=== PATIENT | male | born 1960 | race Caucasian/White ===

== ENCOUNTER 2020-11-16 16:58 | Inpatient (IN) ==
[2020-11-16] MEDS ORDERED: SODIUM CHLORIDE 0.9% 1000ML 1,000 ML IV SCH (17:15)
[2020-11-16 17:52] LABS: Basophils # (auto) 0.01 K/uL (0-0.2); Basophils % (auto) 0.1 %; Eosinophils % (auto) 5.9 %; Hematocrit (blood only) 37.1 % (42-52); Hemoglobin 12.7 g/dL (14.0-18.0); Immature Granulocytes # (auto) 0.02 K/uL (0.00-0.02); Immature Granulocytes % (auto) 0.2 %; Lymphocytes # (auto) 1.16 K/uL (1.2-3.4); Lymphocytes % (auto) 13.6 %; Mean Corpuscular Hgb Conc 34.2 g/dL (32-36); Mean Corpuscular Volume 90.5 fL (80-100); Monocytes % (auto) 4.7 %; Neutrophils # (auto) 6.43 K/uL (1.4-6.5); Neutrophils % (auto) 75.5 %; Platelet Count 297 K/uL (130-400); RDW Coefficient of Variation 13.4 % (11.5-14.5); RDW Standard Deviation 44.4 fL (36.4-46.3); White Blood Count 8.52 K/uL (4.8-10.8)
[2020-11-16 18:04] LABS: Partial Thromboplastin Ratio 1.2; Partial Thromboplastin Time 32.7 Seconds (21.0-31.0); Prothrombin Time 10.4 Seconds (9.0-12.0)
[2020-11-16 18:06] LABS: Alanine Aminotransferase 35 U/L (12-78); Albumin Level 3.9 gm/dl (3.4-5.0); Aspartate Aminotransferase 28 U/L (15-37); BUN Creatinine Ratio 22.6 (10-20); Blood Urea Nitrogen 47 mg/dl (7-18); Calcium 9.1 mg/dl (8.5-10.1); Carbon Dioxide 16 mmol/L (21-32); Chloride 108 mmol/L (98-107); Creatinine Clr Calc Pharmacy 46.4 ml/min; Est GFR (African American) 39.4 ml/min; Glucose 154 mg/dl (70-99); Magnesium 1.7 mg/dl (1.8-2.4); Potassium 5.5 mmol/L (3.5-5.1); Sodium 131 mmol/L (136-145)
[2020-11-16 18:11] LABS: Alkaline Phosphatase 91 U/L (45-117); Bilirubin,Total 0.3 mg/dl (0.2-1); Total Protein 7.9 gm/dl (6.4-8.2); Troponin I < 0.015 ng/ml (0-0.045)
[2020-11-16 18:32] LABS: Procalcitonin 0.49 ng/ml (0-0.5)
[2020-11-16 18:38] LABS: Lyme Ab IgG w/WB Rflx Negative (Negative); Lyme Ab IgM w/WB Rflx Negative (Negative)
[2020-11-16] MEDS ORDERED: VANCOMYCIN HCL 2,000 MG in SODIUM CHLORIDE 0.9% 500 ML IV ONE (18:55)
[2020-11-16] MEDS ORDERED: INSULIN HUMAN REGULAR PER UNIT 10 UNITS in SYRINGE 9.9 ML IV STA (18:55)
[2020-11-16] MEDS ORDERED: CALCIUM GLUCONATE 10% 1,000 MG in SODIUM CHLORIDE 0.9% 50 ML IV STA (18:55)
[2020-11-16] MEDS ORDERED: DEXTROSE 50% 50 ML SYRINGE IV STA (18:55)
[2020-11-16] MEDS ORDERED: VANCOMYCIN CONSULT ACTIVE PRN (18:55)
--- NOTE | 2020-11-16 18:55 | Emergency Department Note ---
History of Present Illness General Chief complaint: Allergic Reaction Stated complaint: ALLERGIC REACTION TO MEDS (KEFLEX) Time Seen by Provider: 11/16/20 17:07 History of Present Illness Provider complaint: Rash fever cellulitis Onset (ago): day(s) (11) Location: chest, abdomen, upper extremity and lower extremity Radiation: non-radiation Associated symptoms: + fever/chills and + rash; no cough, no headaches, no malaise, no nausea/vomiting, no seizure, no shortness of breath or no weakness 60-year-old male presents emergency department for rash fever and cellulitis. Patient reports that approximately 11 days ago he began having redness and cellulitis over the right lower extremity. He reports he presented to the emergency department and was prescribed Keflex. Patient states he has been taking Keflex for the last 9 days and then this morning woke up with a diffuse rash over his leg that quickly spread all over his body including to his upper extremities, trunk, back, and lower extremities. He also started developing a fever today. Patient reports no pain. Patient is diabetic. Home Medications Medication Instructions Recorded Confirmed Type atorvastatin 40 mg tablet 40 mg PO QPM 11/16/20 11/16/20 History gemfibrozil 600 mg tablet 600 mg PO BID 11/16/20 11/16/20 History levothyroxine 25 mcg tablet 25 mcg PO QAM 11/16/20 11/16/20 History lisinopril 20 mg tablet 20 mg PO DAILY 11/16/20 11/16/20 History metformin 1,000 mg tablet 1,000 mg PO BIDM 11/16/20 11/16/20 History omeprazole 40 mg capsule,delayed 40 mg PO DAILY 11/16/20 11/16/20 History release Allergies Allergy/AdvReac Type Severity Reaction Status Date / Time cephalexin Allergy Severe Rash Verified 11/16/20 17:52 Past Med/Surg History Medical History Cellulitis Diabetes No pertinent family history Surgical History No pertinent past surgical history Social History Smoking Status: Never smoker Preferred Language: Spanish Feels Safe at Home: Yes Review of Systems A total of 10 systems reviewed and were otherwise negative Physical Exam Vital Signs Vital Signs - 24 hr 11/16/20 17:00 11/16/20 17:30 11/16/20 17:44 Temperature 38.1 C H Temperature Source Temporal Artery Scan Pulse Rate 120 H 112 H Pulse Rate [Finger] Pulse Rate from SpO2 Sensor Pulse Rhythm Regular Pulse Rhythm [Finger] Pulse Strength Normal Respiratory Rate 20 22 Respiratory Effort / Characteristics Non-Labored Spontaneous Respiratory Depth Normal Respiratory Pattern Regular Blood Pressure 131/77 132/81 Blood Pressure [Left Arm] Blood Pressure Mean 95 98 Blood Pressure Mean [Left Arm] Blood Pressure Position Sitting Pulse Oximetry 98 97 Oxygen Delivery Method Room Air Room Air Sepsis Recent Fever Within 48 Hours Yes Sepsis New/Unexplained Change in Mental Status No Sepsis Action Taken by Nursing Physician Notified 11/16/20 17:46 11/16/20 18:00 11/16/20 18:07 Temperature Temperature Source Pulse Rate 102 H Pulse Rate [Finger] 109 H Pulse Rate from SpO2 Sensor Pulse Rhythm Pulse Rhythm [Finger] Pulse Strength Respiratory Rate 32 H 22 Respiratory Effort / Characteristics Non-Labored Respiratory Depth Respiratory Pattern Blood Pressure 154/71 H Blood Pressure [Left Arm] 132/81 Blood Pressure Mean 98 Blood Pressure Mean [Left Arm] 98 Blood Pressure Position Pulse Oximetry 98 98 Oxygen Delivery Method Room Air Sepsis Recent Fever Within 48 Hours Sepsis New/Unexplained Change in Mental Status Sepsis Action Taken by Nursing 11/16/20 18:30 11/16/20 19:33 11/16/20 20:00 Temperature Temperature Source Pulse Rate 102 H 101 H 108 H Pulse Rate [Finger] Pulse Rate from SpO2 Sensor 102 H Pulse Rhythm Pulse Rhythm [Finger] Pulse Strength Respiratory Rate 22 25 H 22 Respiratory Effort / Characteristics Non-Labored Respiratory Depth Respiratory Pattern Blood Pressure 136/76 126/77 149/71 H Blood Pressure [Left Arm] Blood Pressure Mean 96 93 97 Blood Pressure Mean [Left Arm] Blood Pressure Position Pulse Oximetry 98 97 98 Oxygen Delivery Method Room Air Sepsis Recent Fever Within 48 Hours Sepsis New/Unexplained Change in Mental Status Sepsis Action Taken by Nursing 11/16/20 20:30 11/16/20 21:00 11/16/20 21:02 Temperature 36.7 C Temperature Source Oral Pulse Rate 95 H Pulse Rate [Finger] 96 H Pulse Rate from SpO2 Sensor 96 H Pulse Rhythm Pulse Rhythm [Finger] Regular Pulse Strength Respiratory Rate 16 22 Respiratory Effort / Characteristics Non-Labored Respiratory Depth Normal Respiratory Pattern Blood Pressure 109/76 118/72 Blood Pressure [Left Arm] 118/72 Blood Pressure Mean 87 87 Blood Pressure Mean [Left Arm] 87 Blood Pressure Position Pulse Oximetry 98 97 Oxygen Delivery Method Room Air Sepsis Recent Fever Within 48 Hours Sepsis New/Unexplained Change in Mental Status Sepsis Action Taken by Nursing 11/16/20 21:30 11/16/20 22:00 11/16/20 22:30 Temperature Temperature Source Pulse Rate 100 H 97 H 92 H Pulse Rate [Finger] Pulse Rate from SpO2 Sensor 99 H 97 H Pulse Rhythm Pulse Rhythm [Finger] Pulse Strength Respiratory Rate 22 22 20 Respiratory Effort / Characteristics Non-Labored Non-Labored Non-Labored Respiratory Depth Respiratory Pattern Blood Pressure 125/68 117/67 127/69 Blood Pressure [Left Arm] Blood Pressure Mean 87 83 88 Blood Pressure Mean [Left Arm] Blood Pressure Position Pulse Oximetry 96 97 97 Oxygen Delivery Method Sepsis Recent Fever Within 48 Hours Sepsis New/Unexplained Change in Mental Status Sepsis Action Taken by Nursing 11/16/20 23:00 Temperature Temperature Source Pulse Rate 91 H Pulse Rate [Finger] Pulse Rate from SpO2 Sensor Pulse Rhythm Pulse Rhythm [Finger] Pulse Strength Respiratory Rate 19 Respiratory Effort / Characteristics Non-Labored Respiratory Depth Respiratory Pattern Blood Pressure 129/73 Blood Pressure [Left Arm] Blood Pressure Mean 91 Blood Pressure Mean [Left Arm] Blood Pressure Position Pulse Oximetry 97 Oxygen Delivery Method Sepsis Recent Fever Within 48 Hours Sepsis New/Unexplained Change in Mental Status Sepsis Action Taken by Nursing Physical Exam GENERAL: He is oriented to person, place, and time. He appears well-developed and well-nourished. He does not appear distressed. HENT: Exam performed. - Head: Normocephalic and atraumatic. - Right Ear: External ear normal. No mastoid tenderness. - Left Ear: External ear normal. No mastoid tenderness. - Mouth/Throat: The oropharynx is clear and moist. No trismus in the jaw. No dental abscesses or uvula swelling. No oropharyngeal exudate or tonsillar abscesses. EYES: Conjunctivae and EOM are normal. Pupils are equal, round, and reactive to light. Right eye exhibits no discharge. Left eye exhibits no discharge. No scleral icterus. NECK: Normal range of motion. Neck supple. No JVD present. No spinous process tenderness present. No carotid bruit present. No rigidity. No tracheal deviation and normal range of motion present. No Brudzinski's sign and no Kernig's sign noted. CV: Tachycardic rate, regular rhythm, normal heart sounds and intact distal pulses. There is no peripheral edema. Palpable radial pulses bue. PULM/CHEST: Effort normal and breath sounds normal. No respiratory distress. No stridor. He has no wheezes. He has no rales. - Chest Wall: He exhibits no tenderness. ABD: The abdomen is soft. Bowel sounds are normal. He has no distension. No mass is present. There is no tenderness. There is no rebound, no guarding, no Young's sign and no tenderness at McBurney's point. Rovsig negative. MUSC/SKEL: Normal range of motion. There is no peripheral edema, tenderness or deformity. LYMPH: No cervical adenopathy. NEURO: He is alert and oriented to person, place, and time. He has normal strength. No cranial nerve deficit or sensory deficit. Coordination and gait normal. GCS eye subscore is 4. GCS verbal subscore is 5. GCS motor subscore is 6. Cerebellar tests wnl. SKIN: Erythema and warmth over the right lower extremity over the dorsal ankle. There is a macular rash over his bilateral lower extremities, bilateral upper extremities, trunk and back. Nonpainful to touch. No vesicles. Nikolsky negative. PSYCH: He has a normal mood and affect. Behavior is normal. Judgment and thought content normal. Course Course 1706: The patient was evaluated in room B2. A complete history and physical exam was performed Cardiac monitoring: An order was placed for continuous cardiac monitoring. The monitor shows a rate of 110 with sinus tachycardia rhythm 1905: Labs show a normal white blood cell count. Lactic acid within normal limits. Creatinine 2.07. Potassium 5.5. Patient treated with calcium gluconate 1 amp of D50 and 10 units of insulin for his hyperkalemia. Patient will be given vancomycin for the cellulitis failed outpatient treatment. [facility] Administered Medications Sodium Chloride (Nss 1000ml) 1,000 mls @ 200 mls/hr IV .Q5H ONE Stop: 11/17/20 00:46 Last Admin: 11/16/20 20:39 Dose: 200 mls/hr Documented by: [id number] Discontinued Medications Acetaminophen (Acetaminophen 325 Mg Tab) 650 mg PO NOW STA Stop: 11/16/20 20:48 Last Admin: 11/16/20 21:05 Dose: Not Given Documented by: [id number] Calcium Gluconate (Calcium Gluconate 1000 Mg/60 Ml Nss) Confirm Administered Dose 1,000 mg IV .STK-MED ONE Stop: 11/16/20 19:19 Last Admin: 11/16/20 19:35 Dose: Not Given Documented by: [id number] Dextrose (Dextrose 50% 50 Ml Syringe) 50 ml IV NOW STA Stop: 11/16/20 18:56 Last Admin: 11/16/20 19:29 Dose: 50 ml Documented by: [id number] Sodium Chloride (Nss 1000ml) 1,000 mls @ 999 mls/hr IV .Q1H1M MARK Stop: 11/16/20 18:15 Last Infusion: 11/16/20 19:00 Dose: 0 mls/hr Documented by: [id number] Admin: 11/16/20 17:47 Dose: 999 mls/hr Documented by: [id number] Vancomycin HCl 2,000 mg/ (Sodium Chloride) 540 mls @ 200 mls/hr IV NOW ONE Stop: 11/16/20 21:36 Last Admin: 11/16/20 19:45 Dose: Not Given Documented by: [id number] Calcium Gluconate 1,000 mg/ (Sodium Chloride) 60 mls @ 240 mls/hr IV NOW STA Stop: 11/16/20 19:09 Last Infusion: 11/16/20 19:50 Dose: 0 mls/hr Documented by: [id number] Admin: 11/16/20 19:35 Dose: 240 mls/hr Documented by: [id number] Insulin Human Regular 10 units (/ Syringe) 9.9 mls @ 3 mls/sec IV ONE STA Stop: 11/16/20 18:56 Last Admin: 11/16/20 19:32 Dose: 3 mls/sec Documented by: [id number] Cosigned by: [id number] Doxycycline Hyclate 100 mg/ (Dextrose) 110 mls @ 50 mls/hr IV NOW STA Stop: 11/16/20 21:52 Last Infusion: 11/16/20 22:28 Dose: 0 mls/hr Documented by: [id number] Admin: 11/16/20 20:39 Dose: 50 mls/hr Documented by: [id number] Magnesium Sulfate/Dextrose (Magnesium Sulfate / D5w) 1 gm in 100 mls @ 50 mls/hr IV ONE ONE Stop: 11/16/20 22:46 Last Admin: 11/16/20 22:28 Dose: 50 mls/hr Documented by: [id number] Insulin Human Regular (Novolin-R Insulin Per Unit Charge) Confirm Administered Dose 10 units .ROUTE .STK-MED ONE Stop: 11/16/20 19:21 Last Admin: 11/16/20 19:36 Dose: Not Given Documented by: [id number] Prednisone (Prednisone 50 Mg Tab) 100 mg PO NOW STA Stop: 11/16/20 21:36 Last Admin: 11/16/20 22:27 Dose: 100 mg Documented by: [id number] Medical Decision Making Laboratory Data Result diagrams: 11/16/20 17:40 11/16/20 20:02 Lab Results 11/16/20 11/16/20 11/16/20 Range/Units 17:40 17:40 17:40 WBC 8.52 (4.8-10.8) K/uL RBC 4.10 L (4.7-6.1) M/uL Hgb 12.7 L (14.0-18.0) g/dL Hct 37.1 L (42-52) % MCV 90.5 (80-100) fL MCH 31.0 (25-34) pg MCHC 34.2 (32-36) g/dL RDW Std Deviation 44.4 (36.4-46.3) fL RDW Coeff of Valentin 13.4 (11.5-14.5) % Plt Count 297 (130-400) K/uL MPV 10.0 (7.4-10.4) fL Immature Gran % (Auto) 0.2 % Neut % (Auto) 75.5 % Lymph % (Auto) 13.6 % Todd % (Auto) 4.7 % Eos % (Auto) 5.9 % Baso % (Auto) 0.1 % Reticulocyte % (Auto) < 0.5 L (0.5-2.0) % Neut # (Auto) 6.43 (1.4-6.5) K/uL Lymph # (Auto) 1.16 L (1.2-3.4) K/uL Todd # (Auto) 0.40 (0.11-0.59) K/uL Eos # (Auto) 0.50 (0-0.5) K/uL Baso # (Auto) 0.01 (0-0.2) K/uL Reticulocyte # 0.02 (0.02-0.10) 10^6/uL Immature Gran # (Auto) 0.02 (0.00-0.02) K/uL PT 10.4 (9.0-12.0) Seconds INR 1.0 (0.9-1.1) APTT 32.7 H (21.0-31.0) Seconds PTT Ratio 1.2 Sodium 131 L (136-145) mmol/L Potassium 5.5 H (3.5-5.1) mmol/L Chloride 108 H (98-107) mmol/L Carbon Dioxide 16 L (21-32) mmol/L Anion Gap 7.0 (3-11) BUN 47 H (7-18) mg/dl Creatinine 2.07 H (0.6-1.4) mg/dl Est Cr Clr Drug Dosing 46.4 ml/min Est GFR ( Amer) 39.4 ml/min Est GFR (Non-Af Amer) 34.0 ml/min BUN/Creatinine Ratio 22.6 H (10-20) Glucose 154 H (70-99) mg/dl POC Glucose (70-99) mg/dl Lactate (0.4-2.0) mmol/L Calcium 9.1 (8.5-10.1) mg/dl Magnesium 1.7 L (1.8-2.4) mg/dl Iron (35-175) mcg/dl TIBC (250-450) mcg/dl Transferrin (200-360) mg/dl Ferritin (8-388) ng/ml Total Bilirubin 0.3 (0.2-1) mg/dl AST 28 (15-37) U/L ALT 35 (12-78) U/L Alkaline Phosphatase 91 (45-117) U/L Troponin I < 0.015 (0-0.045) ng/ml Total Protein 7.9 (6.4-8.2) gm/dl Albumin 3.9 (3.4-5.0) gm/dl Globulin 4.0 (2.5-4.0) gm/dl Albumin/Globulin Ratio 1.0 (0.9-2) Vitamin B12 (193-986) pg/ml Folate (>5.38) ng/ml Procalcitonin (0-0.5) ng/ml TSH (0.300-4.500) uIu/ml Free T4 (0.8-1.6) ng/dl Urine Color Urine Appearance (Clear) Urine pH (4.5-7.5) Ur Specific [place] (1.000-1.030) Urine Protein (Negative) Urine Glucose (UA) (Negative) Urine Ketones (Negative) Urine Blood (Negative) Urine Nitrite (Negative) Urine Bilirubin (Negative) Urine Urobilinogen (Negative) Ur Leukocyte Esterase (Negative) Anaplasma Smear See Comment Lyme Disease IgG Ab (Negative) Lyme Disease IgM Ab (Negative) COVID-19 Eval Order SARS-CoV-2 (PCR) (Negative) 11/16/20 11/16/20 11/16/20 Range/Units 17:40 17:40 19:20 WBC (4.8-10.8) K/uL RBC (4.7-6.1) M/uL Hgb (14.0-18.0) g/dL Hct (42-52) % MCV (80-100) fL MCH (25-34) pg MCHC (32-36) g/dL RDW Std Deviation (36.4-46.3) fL RDW Coeff of Valentin (11.5-14.5) % Plt Count (130-400) K/uL MPV (7.4-10.4) fL Immature Gran % (Auto) % Neut % (Auto) % Lymph % (Auto) % Todd % (Auto) % Eos % (Auto) % Baso % (Auto) % Reticulocyte % (Auto) (0.5-2.0) % Neut # (Auto) (1.4-6.5) K/uL Lymph # (Auto) (1.2-3.4) K/uL Todd # (Auto) (0.11-0.59) K/uL Eos # (Auto) (0-0.5) K/uL Baso # (Auto) (0-0.2) K/uL Reticulocyte # (0.02-0.10) 10^6/uL Immature Gran # (Auto) (0.00-0.02) K/uL PT (9.0-12.0) Seconds INR (0.9-1.1) APTT (21.0-31.0) Seconds PTT Ratio Sodium (136-145) mmol/L Potassium (3.5-5.1) mmol/L Chloride (98-107) mmol/L Carbon Dioxide (21-32) mmol/L Anion Gap (3-11) BUN (7-18) mg/dl Creatinine (0.6-1.4) mg/dl Est Cr Clr Drug Dosing ml/min Est GFR ( Amer) ml/min Est GFR (Non-Af Amer) ml/min BUN/Creatinine Ratio (10-20) Glucose (70-99) mg/dl POC Glucose (70-99) mg/dl Lactate 0.9 (0.4-2.0) mmol/L Calcium (8.5-10.1) mg/dl Magnesium (1.8-2.4) mg/dl Iron (35-175) mcg/dl TIBC (250-450) mcg/dl Transferrin (200-360) mg/dl Ferritin (8-388) ng/ml Total Bilirubin (0.2-1) mg/dl AST (15-37) U/L ALT (12-78) U/L Alkaline Phosphatase (45-117) U/L Troponin I (0-0.045) ng/ml Total Protein (6.4-8.2) gm/dl Albumin (3.4-5.0) gm/dl Globulin (2.5-4.0) gm/dl Albumin/Globulin Ratio (0.9-2) Vitamin B12 (193-986) pg/ml Folate (>5.38) ng/ml Procalcitonin 0.49 (0-0.5) ng/ml TSH (0.300-4.500) uIu/ml Free T4 (0.8-1.6) ng/dl Urine Color Urine Appearance (Clear) Urine pH (4.5-7.5) Ur Specific [place] (1.000-1.030) Urine Protein (Negative) Urine Glucose (UA) (Negative) Urine Ketones (Negative) Urine Blood (Negative) Urine Nitrite (Negative) Urine Bilirubin (Negative) Urine Urobilinogen (Negative) Ur Leukocyte Esterase (Negative) Anaplasma Smear Lyme Disease IgG Ab Negative (Negative) Lyme Disease IgM Ab Negative (Negative) COVID-19 Eval Order Covid19 at [facility] SARS-CoV-2 (PCR) (Negative) 11/16/20 11/16/20 11/16/20 Range/Units 19:20 19:38 20:02 WBC (4.8-10.8) K/uL RBC (4.7-6.1) M/uL Hgb (14.0-18.0) g/dL Hct (42-52) % MCV (80-100) fL MCH (25-34) pg MCHC (32-36) g/dL RDW Std Deviation (36.4-46.3) fL RDW Coeff of Valentin (11.5-14.5) % Plt Count (130-400) K/uL MPV (7.4-10.4) fL Immature Gran % (Auto) % Neut % (Auto) % Lymph % (Auto) % Todd % (Auto) % Eos % (Auto) % Baso % (Auto) % Reticulocyte % (Auto) (0.5-2.0) % Neut # (Auto) (1.4-6.5) K/uL Lymph # (Auto) (1.2-3.4) K/uL Todd # (Auto) (0.11-0.59) K/uL Eos # (Auto) (0-0.5) K/uL Baso # (Auto) (0-0.2) K/uL Reticulocyte # (0.02-0.10) 10^6/uL Immature Gran # (Auto) (0.00-0.02) K/uL PT (9.0-12.0) Seconds INR (0.9-1.1) APTT (21.0-31.0) Seconds PTT Ratio Sodium 135 L (136-145) mmol/L Potassium 4.8 (3.5-5.1) mmol/L Chloride 110 H (98-107) mmol/L Carbon Dioxide 14 L (21-32) mmol/L Anion Gap 11.0 (3-11) BUN 42 H (7-18) mg/dl Creatinine 1.90 H (0.6-1.4) mg/dl Est Cr Clr Drug Dosing 50.6 ml/min Est GFR ( Amer) 43.7 ml/min Est GFR (Non-Af Amer) 37.7 ml/min BUN/Creatinine Ratio 22.2 H (10-20) Glucose 111 H (70-99) mg/dl POC Glucose (70-99) mg/dl Lactate (0.4-2.0) mmol/L Calcium 9.1 (8.5-10.1) mg/dl Magnesium (1.8-2.4) mg/dl Iron 56 (35-175) mcg/dl TIBC 268 (250-450) mcg/dl Transferrin 245 (200-360) mg/dl Ferritin 745.6 H (8-388) ng/ml Total Bilirubin (0.2-1) mg/dl AST (15-37) U/L ALT (12-78) U/L Alkaline Phosphatase (45-117) U/L Troponin I (0-0.045) ng/ml Total Protein (6.4-8.2) gm/dl Albumin (3.4-5.0) gm/dl Globulin (2.5-4.0) gm/dl Albumin/Globulin Ratio (0.9-2) Vitamin B12 (193-986) pg/ml Folate (>5.38) ng/ml Procalcitonin (0-0.5) ng/ml TSH 16.800 H (0.300-4.500) uIu/ml Free T4 0.65 L (0.8-1.6) ng/dl Urine Color Yellow Urine Appearance Clear (Clear) Urine pH 5.0 (4.5-7.5) Ur Specific [place] 1.012 (1.000-1.030) Urine Protein Negative (Negative) Urine Glucose (UA) Negative (Negative) Urine Ketones Negative (Negative) Urine Blood Negative (Negative) Urine Nitrite Negative (Negative) Urine Bilirubin Negative (Negative) Urine Urobilinogen Negative (Negative) Ur Leukocyte Esterase Negative (Negative) Anaplasma Smear Lyme Disease IgG Ab (Negative) Lyme Disease IgM Ab (Negative) COVID-19 Eval Order SARS-CoV-2 (PCR) POSITIVE A* (Negative) 11/16/20 11/16/20 11/16/20 Range/Units 20:02 21:04 21:44 WBC (4.8-10.8) K/uL RBC (4.7-6.1) M/uL Hgb (14.0-18.0) g/dL Hct (42-52) % MCV (80-100) fL MCH (25-34) pg MCHC (32-36) g/dL RDW Std Deviation (36.4-46.3) fL RDW Coeff of Valentin (11.5-14.5) % Plt Count (130-400) K/uL MPV (7.4-10.4) fL Immature Gran % (Auto) % Neut % (Auto) % Lymph % (Auto) % Todd % (Auto) % Eos % (Auto) % Baso % (Auto) % Reticulocyte % (Auto) (0.5-2.0) % Neut # (Auto) (1.4-6.5) K/uL Lymph # (Auto) (1.2-3.4) K/uL Todd # (Auto) (0.11-0.59) K/uL Eos # (Auto) (0-0.5) K/uL Baso # (Auto) (0-0.2) K/uL Reticulocyte # (0.02-0.10) 10^6/uL Immature Gran # (Auto) (0.00-0.02) K/uL PT (9.0-12.0) Seconds INR (0.9-1.1) APTT (21.0-31.0) Seconds PTT Ratio Sodium (136-145) mmol/L Potassium (3.5-5.1) mmol/L Chloride (98-107) mmol/L Carbon Dioxide (21-32) mmol/L Anion Gap (3-11) BUN (7-18) mg/dl Creatinine (0.6-1.4) mg/dl Est Cr Clr Drug Dosing ml/min Est GFR ( Amer) ml/min Est GFR (Non-Af Amer) ml/min BUN/Creatinine Ratio (10-20) Glucose (70-99) mg/dl POC Glucose 110 H (70-99) mg/dl Lactate (0.4-2.0) mmol/L Calcium (8.5-10.1) mg/dl Magnesium (1.8-2.4) mg/dl Iron (35-175) mcg/dl TIBC (250-450) mcg/dl Transferrin (200-360) mg/dl Ferritin (8-388) ng/ml Total Bilirubin (0.2-1) mg/dl AST (15-37) U/L ALT (12-78) U/L Alkaline Phosphatase (45-117) U/L Troponin I (0-0.045) ng/ml Total Protein (6.4-8.2) gm/dl Albumin (3.4-5.0) gm/dl Globulin (2.5-4.0) gm/dl Albumin/Globulin Ratio (0.9-2) Vitamin B12 248 (193-986) pg/ml Folate 9.50 (>5.38) ng/ml Procalcitonin (0-0.5) ng/ml TSH (0.300-4.500) uIu/ml Free T4 (0.8-1.6) ng/dl Urine Color Urine Appearance (Clear) Urine pH (4.5-7.5) Ur Specific [place] (1.000-1.030) Urine Protein (Negative) Urine Glucose (UA) (Negative) Urine Ketones (Negative) Urine Blood (Negative) Urine Nitrite (Negative) Urine Bilirubin (Negative) Urine Urobilinogen (Negative) Ur Leukocyte Esterase (Negative) Anaplasma Smear Lyme Disease IgG Ab (Negative) Lyme Disease IgM Ab (Negative) COVID-19 Eval Order SARS-CoV-2 (PCR) NEGATIVE (Negative) 11/16/20 Range/Units 21:45 WBC (4.8-10.8) K/uL RBC (4.7-6.1) M/uL Hgb (14.0-18.0) g/dL Hct (42-52) % MCV (80-100) fL MCH (25-34) pg MCHC (32-36) g/dL RDW Std Deviation (36.4-46.3) fL RDW Coeff of Valentin (11.5-14.5) % Plt Count (130-400) K/uL MPV (7.4-10.4) fL Immature Gran % (Auto) % Neut % (Auto) % Lymph % (Auto) % Todd % (Auto) % Eos % (Auto) % Baso % (Auto) % Reticulocyte % (Auto) (0.5-2.0) % Neut # (Auto) (1.4-6.5) K/uL Lymph # (Auto) (1.2-3.4) K/uL Todd # (Auto) (0.11-0.59) K/uL Eos # (Auto) (0-0.5) K/uL Baso # (Auto) (0-0.2) K/uL Reticulocyte # (0.02-0.10) 10^6/uL Immature Gran # (Auto) (0.00-0.02) K/uL PT (9.0-12.0) Seconds INR (0.9-1.1) APTT (21.0-31.0) Seconds PTT Ratio Sodium (136-145) mmol/L Potassium (3.5-5.1) mmol/L Chloride (98-107) mmol/L Carbon Dioxide (21-32) mmol/L Anion Gap (3-11) BUN (7-18) mg/dl Creatinine (0.6-1.4) mg/dl Est Cr Clr Drug Dosing ml/min Est GFR ( Amer) ml/min Est GFR (Non-Af Amer) ml/min BUN/Creatinine Ratio (10-20) Glucose (70-99) mg/dl POC Glucose (70-99) mg/dl Lactate (0.4-2.0) mmol/L Calcium (8.5-10.1) mg/dl Magnesium (1.8-2.4) mg/dl Iron (35-175) mcg/dl TIBC (250-450) mcg/dl Transferrin (200-360) mg/dl Ferritin (8-388) ng/ml Total Bilirubin (0.2-1) mg/dl AST (15-37) U/L ALT (12-78) U/L Alkaline Phosphatase (45-117) U/L Troponin I (0-0.045) ng/ml Total Protein (6.4-8.2) gm/dl Albumin (3.4-5.0) gm/dl Globulin (2.5-4.0) gm/dl Albumin/Globulin Ratio (0.9-2) Vitamin B12 (193-986) pg/ml Folate (>5.38) ng/ml Procalcitonin (0-0.5) ng/ml TSH (0.300-4.500) uIu/ml Free T4 (0.8-1.6) ng/dl Urine Color Urine Appearance (Clear) Urine pH (4.5-7.5) Ur Specific [place] (1.000-1.030) Urine Protein (Negative) Urine Glucose (UA) (Negative) Urine Ketones (Negative) Urine Blood (Negative) Urine Nitrite (Negative) Urine Bilirubin (Negative) Urine Urobilinogen (Negative) Ur Leukocyte Esterase (Negative) Anaplasma Smear Lyme Disease IgG Ab (Negative) Lyme Disease IgM Ab (Negative) COVID-19 Eval Order Covid19 at [facility] SARS-CoV-2 (PCR) (Negative) Imaging Data Radiologist's Impression: Chest X-Ray 11/16/20 17:07 XR chest 1V portable HISTORY: SEPSIS COMPARISON: None. FINDINGS: No pneumothorax. No pleural effusions. A few left basilar linear densities favor subsegmental atelectasis or scarring. No focal lung consolidations to suggest pneumonia. No evidence for pulmonary edema. The heart is normal in size. There are low lung volumes. IMPRESSION: No acute process. ACT 112: Negative or not required by law. Electronically signed by: Mikal Zamudio M.D. 11/16/2020 7:39 PM ECG Data Indication: + other (sepsis) Rate (beats per minute): 115 Rhythm: + sinus tachycardia ECG Intervals/blocks: + Normal QRS, + Normal FL and + Normal QT-c ECG ST segments: + Normal ST segments MDM Narrative Labs show a normal white blood cell count. Lactic acid within normal limits. Creatinine 2.07. Potassium 5.5. Patient treated with calcium gluconate 1 amp of D50 and 10 units of insulin for his hyperkalemia. Patient will be given vancomycin for the cellulitis failed outpatient treatment. [facility] Impression & Plan Cellulitis, Acute hyperkalemia Discharge Plan Visit Data Chief Complaint: Allergic Reaction Stated Complaint: ALLERGIC REACTION TO MEDS (KEFLEX) ED Provider: George Dias Discharge Problem: Cellulitis, Acute hyperkalemia Patient Disposition: Admitted As Inpatient Forms Stand Alone Forms: [facility] Prescriptions Prescriptions: No Action atorvastatin 40 mg tablet 40 mg PO QPM RF: 0 lisinopril 20 mg tablet 20 mg PO DAILY RF: 0 levothyroxine 25 mcg tablet 25 mcg PO QAM RF: 0 gemfibrozil 600 mg tablet 600 mg PO BID RF: 0 metformin 1,000 mg tablet 1,000 mg PO BIDM RF: 0 omeprazole 40 mg Capsule,Delayed Release(Dr/Ec) 40 mg PO DAILY RF: 0 Referrals Referrals: Carroll Galarza MD [Primary Care Provider] - Discharge Problem: Cellulitis Qualifiers: Site of cellulitis: unspecified site Qualified Code(s): L03.90 - Cellulitis, unspecified
[2020-11-16] MEDS ORDERED: CALCIUM GLUCONATE 1000 MG/60 ML NSS IV ONE (19:18)
[2020-11-16] MEDS ORDERED: NovoLIN-R INSULIN PER UNIT CHARGE ONE (19:20)
--- NOTE | 2020-11-16 19:40 | XRay Report ---
XR chest 1V portable HISTORY: SEPSIS COMPARISON: None. FINDINGS: No pneumothorax. No pleural effusions. A few left basilar linear densities favor subsegment al atelectasis or scarring. No focal lung consolidations to suggest pneumonia. No evidence for pulmon misty edema. The heart is normal in size. There are low lung volumes. IMPRESSION: No acute process. ACT 112: Negative or not required by law. Electronically signed by: Mikal Zamudio M.D. 11/16/2020 7:39 PM
[2020-11-16] MEDS ORDERED: DOXYCYCLINE HYCLATE 100 MG in DEXTROSE 5% 100 ML IV STA (19:41)
[2020-11-16] MEDS ORDERED: SODIUM CHLORIDE 0.9% 1000ML 1,000 ML IV ONE (19:47)
[2020-11-16 19:56] LABS: Appearance Urine Clear (Clear); Bilirubin Urine Negative (Negative); Blood Urine Negative (Negative); Color Urine Yellow; Glucose Urine UA Negative (Negative); Ketones Urine Negative (Negative); Leukocyte Esterase Urine Negative (Negative); Nitrite Urine Negative (Negative); Protein Urine Negative (Negative); Specific Gravity Urine 1.012 (1.000-1.030); Urobilinogen Urine Negative (Negative)
[2020-11-16 20:17] LABS: Reticulocyte % < 0.5 % (0.5-2.0); Reticulocytes # 0.02 10^6/uL (0.02-0.10)
[2020-11-16 20:37] LABS: BUN Creatinine Ratio 22.2 (10-20); Calcium 9.1 mg/dl (8.5-10.1); Creatinine Clr Calc Pharmacy 50.6 ml/min; Est GFR (African American) 43.7 ml/min; Est GFR (Non-African American) 37.7 ml/min; Potassium 4.8 mmol/L (3.5-5.1)
[2020-11-16] MEDS ORDERED: MAGNESIUM SULFATE / D5W 1 GM/100 ML BAG IV ONE (20:47)
[2020-11-16] MEDS ORDERED: ACETAMINOPHEN 325 MG TAB PO STA (20:47)
[2020-11-16 20:48] LABS: Ferritin 745.6 ng/ml (8-388); Thyroid Stimulating Hormone 16.8 uIu/ml (0.300-4.500)
[2020-11-16 21:00] LABS: T4 Free Thyroxine 0.65 ng/dl (0.8-1.6)
[2020-11-16 21:25] LABS: Folate (Folic Acid) 9.5 ng/ml (>5.38)
[2020-11-16] MEDS ORDERED: predniSONE 50 MG TAB PO STA (21:35)
[2020-11-17] MEDS ORDERED: SODIUM CHLORIDE 0.9% 1000ML 1,000 ML IV ONE (00:30)
--- NOTE | 2020-11-17 01:09 | History & Physical Report ---
Date of Service November 16, 2020 (late entry) Assessment & Plan (1) ARF (acute renal failure): Plan: ARF on CKD Likely ATN from recent antibiotic medications Hyperkalemia secondary to above Home ACEI contributory Drug rash Possibly from Keflex RLE cellulitis improved post antibiotic Rx Discordant COVID-19 tests hx COVID-19 illness (June 2020) Patient without espiratory symptoms. 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 COVID-19 isolation precautions for now Basal insulin, ISS BG goal 1 10-1 40, carb count coverage, update hemoglobin A1c Anemia work-up, transfuse PRBC if hemoglobin less than 7 and or for symptomatic anemia Increase maintenance levothyroxine dose from 25 to 50 mcg daily, recheck TSH outpatient next month DVT prophylaxis. Heparin subcu Full code Text document was generated using [employer] voice recognition software. It may contain grammatical or spelling errors. Kindly contact undersigned for clarification of any documentation item in question. History of Present Illness Chief Complaint: Rash, allergic reaction Primary Care Provider: Carroll Galarza MD History obtained from patient, family, and records. Medical history significant for hyperlipidemia, DM2 on oral medications, CRI ( baseline creatinine 1.3-1.4), chronic anemia (baseline hemoglobin of 13). Last confinement 2012 for dental abscess and odontogenic left facial cellulitis. Patient contracted COVID-19 illness last July 2020. Cough, nasal congestion symptoms self-limiting. No hospitalization required. 12 days ago, patient noted right foot pain swelling which later involved right lower leg. No fever, no chills no recollection of trauma. Patient seen at the ER. Patient discharged on Keflex and Bactrim course. Improved right leg swelling following compliance with antibiotic regimen. Patient completed Bactrim course. Few more days of Keflex. Generalized pruritus symptoms noted when patient went to bed last night. This morning, patient woke up with a generalized rash. Low-grade fever at home. Patient denies chest pain, S OB, cough symptoms. Patient brought to the ER by for evaluation. First COVID-19 test was positive. ED RN requested repeat swab to confirm result as patient's first specimen was submitted to the lab at the same time as another ED patient with Covid 19 pneumonia findings on CXR. Patient's second COVID-19 swab found to be negative. ED patient with COVID-19 pneumonia findings with 2 negative COVID-19 swabs results at the ER. Medical History as above Surgical History : None Family History : Lung cancer, penile cancer, hypertension Personal/Social history : Non-smoker, occasional EtOH intake, construction work Allergies Allergy/AdvReac Type Severity Reaction Status Date / Time cephalexin Allergy Severe Rash Verified 11/16/20 17:52 Home Medications Medication Instructions Recorded Confirmed Type atorvastatin 40 mg tablet 40 mg PO QPM 11/16/20 11/16/20 History gemfibrozil 600 mg tablet 600 mg PO BID 11/16/20 11/16/20 History levothyroxine 25 mcg tablet 25 mcg PO QAM 11/16/20 11/16/20 History lisinopril 20 mg tablet 20 mg PO DAILY 11/16/20 11/16/20 History metformin 1,000 mg tablet 1,000 mg PO BIDM 11/16/20 11/16/20 History omeprazole 40 mg capsule,delayed 40 mg PO DAILY 11/16/20 11/16/20 History release Past Med/Surg History Medical History Cellulitis Diabetes No pertinent family history Surgical History No pertinent past surgical history Social History Smoking Status: Never smoker Hx Alcohol Use: No Hx Substance Use: No Preferred Language: Israeli Communication Ability: Effective Motion And Time Study Teacher Required: No Beliefs That Will Affect Care: None Current Living Situation: Spouse Other Information That Helps Us Care for You: No Feels Safe at Home: Yes Safety Concerns: Feels Safe At This Time Assistive Devices: None Review of Systems Review of Systems: As per HPI, all 10 systems reviewed, all other ROS negative Physical Exam Physical Exam: GENERAL: Uncomfortable, obese, no respiratory distress SKIN: Generalized maculopapular rash, warm HEENT: Flushed face, pink palpebral conjunctivae, no ptosis, dry buccal mucosa NECK : Supple, short neck, no tenderness CHEST : CTA, no tenderness HEART : RRR, no obvious murmurs ABDOMEN: Some distention, nontender RECTAL : Intact sphincter, brown stool (FOBT negative) EXTREMITIES : Minimal LE swelling/tenderness, no other conspicuous deformities noted NEUROLOGIC : Coherent, no facial asymmetry, no other gross focality Results & Data Results & Data ([facility]) Vital Signs (Past 12 Hours) Vital Signs Temp Pulse Pulse Resp BP BP Pulse Ox 11/17/20 00:00 85 24 123/70 95 11/16/20 23:30 87 25 H 132/69 96 11/16/20 23:00 91 H 19 129/73 97 11/16/20 22:30 92 H 20 127/69 97 11/16/20 22:00 97 H 22 117/67 97 11/16/20 21:30 100 H 22 125/68 96 11/16/20 21:02 95 H 22 118/72 97 11/16/20 21:00 36.7 C 96 H 16 118/72 98 11/16/20 20:30 109/76 11/16/20 20:00 108 H 22 149/71 H 98 11/16/20 19:33 101 H 25 H 126/77 97 11/16/20 18:30 102 H 22 136/76 98 11/16/20 18:00 102 H 22 154/71 H 98 11/16/20 17:46 109 H 32 H 132/81 98 11/16/20 17:44 97 11/16/20 17:30 112 H 22 132/81 11/16/20 17:00 38.1 C H 120 H 20 131/77 98 Laboratory Results Laboratory Results WBC 8.52 K/uL (4.8-10.8) 11/16/20 17:40 RBC 4.10 M/uL (4.7-6.1) L 11/16/20 17:40 Hgb 12.7 g/dL (14.0-18.0) L 11/16/20 17:40 Hct 37.1 % (42-52) L 11/16/20 17:40 MCV 90.5 fL (80-100) 11/16/20 17:40 MCH 31.0 pg (25-34) 11/16/20 17:40 MCHC 34.2 g/dL (32-36) 11/16/20 17:40 RDW Std Deviation 44.4 fL (36.4-46.3) 11/16/20 17:40 RDW Coeff of Valentin 13.4 % (11.5-14.5) 11/16/20 17:40 Plt Count 297 K/uL (130-400) 11/16/20 17:40 MPV 10.0 fL (7.4-10.4) 11/16/20 17:40 Immature Gran % (Auto) 0.2 % 11/16/20 17:40 Neut % (Auto) 75.5 % 11/16/20 17:40 Lymph % (Auto) 13.6 % 11/16/20 17:40 Atlantic % (Auto) 4.7 % 11/16/20 17:40 Eos % (Auto) 5.9 % 11/16/20 17:40 Baso % (Auto) 0.1 % 11/16/20 17:40 Reticulocyte % (Auto) < 0.5 % (0.5-2.0) L 11/16/20 17:40 Neut # (Auto) 6.43 K/uL (1.4-6.5) 11/16/20 17:40 Lymph # (Auto) 1.16 K/uL (1.2-3.4) L 11/16/20 17:40 Atlantic # (Auto) 0.40 K/uL (0.11-0.59) 11/16/20 17:40 Eos # (Auto) 0.50 K/uL (0-0.5) 11/16/20 17:40 Baso # (Auto) 0.01 K/uL (0-0.2) 11/16/20 17:40 Reticulocyte # 0.02 10^6/uL (0.02-0.10) 11/16/20 17:40 Immature Gran # (Auto) 0.02 K/uL (0.00-0.02) 11/16/20 17:40 PT 10.4 Seconds (9.0-12.0) 11/16/20 17:40 INR 1.0 (0.9-1.1) 11/16/20 17:40 APTT 32.7 Seconds (21.0-31.0) H 11/16/20 17:40 PTT Ratio 1.2 11/16/20 17:40 Sodium 135 mmol/L (136-145) L 11/16/20 20:02 Potassium 4.8 mmol/L (3.5-5.1) 11/16/20 20:02 Chloride 110 mmol/L (98-107) H 11/16/20 20:02 Carbon Dioxide 14 mmol/L (21-32) L 11/16/20 20:02 Anion Gap 11.0 (3-11) 11/16/20 20:02 BUN 42 mg/dl (7-18) H 11/16/20 20:02 Creatinine 1.90 mg/dl (0.6-1.4) H 11/16/20 20:02 Est Cr Clr Drug Dosing 50.6 ml/min 11/16/20 20:02 Est GFR ( Amer) 43.7 ml/min 11/16/20 20:02 Est GFR (Non-Af Amer) 37.7 ml/min 11/16/20 20:02 BUN/Creatinine Ratio 22.2 (10-20) H 11/16/20 20:02 Glucose 111 mg/dl (70-99) H 11/16/20 20:02 POC Glucose 110 mg/dl (70-99) H 11/16/20 21:04 Lactate 0.9 mmol/L (0.4-2.0) 11/16/20 17:40 Calcium 9.1 mg/dl (8.5-10.1) 11/16/20 20:02 Magnesium 1.7 mg/dl (1.8-2.4) L 11/16/20 17:40 Iron 56 mcg/dl (35-175) 11/16/20 20:02 TIBC 268 mcg/dl (250-450) 11/16/20 20:02 Transferrin 245 mg/dl (200-360) 11/16/20 20:02 Ferritin 745.6 ng/ml (8-388) H 11/16/20 20:02 Total Bilirubin 0.3 mg/dl (0.2-1) 11/16/20 17:40 AST 28 U/L (15-37) 11/16/20 17:40 ALT 35 U/L (12-78) 11/16/20 17:40 Alkaline Phosphatase 91 U/L (45-117) 11/16/20 17:40 Total Creatine Kinase 328 U/L (39-308) H 11/16/20 20:02 Troponin I < 0.015 ng/ml (0-0.045) 11/16/20 17:40 Total Protein 7.9 gm/dl (6.4-8.2) 11/16/20 17:40 Albumin 3.9 gm/dl (3.4-5.0) 11/16/20 17:40 Globulin 4.0 gm/dl (2.5-4.0) 11/16/20 17:40 Albumin/Globulin Ratio 1.0 (0.9-2) 11/16/20 17:40 Vitamin B12 248 pg/ml (193-986) 11/16/20 20:02 Folate 9.50 ng/ml (>5.38) 11/16/20 20:02 Procalcitonin 0.49 ng/ml (0-0.5) 11/16/20 17:40 TSH 16.800 uIu/ml (0.300-4.500) H 11/16/20 20:02 Free T4 0.65 ng/dl (0.8-1.6) L 11/16/20 20:02 Urine Color Yellow 11/16/20 19:38 Urine Appearance Clear (Clear) 11/16/20 19:38 Urine pH 5.0 (4.5-7.5) 11/16/20 19:38 Ur Specific [place] 1.012 (1.000-1.030) 11/16/20 19:38 Urine Protein Negative (Negative) 11/16/20 19:38 Urine Glucose (UA) Negative (Negative) 11/16/20 19:38 Urine Ketones Negative (Negative) 11/16/20 19:38 Urine Blood Negative (Negative) 11/16/20 19:38 Urine Nitrite Negative (Negative) 11/16/20 19:38 Urine Bilirubin Negative (Negative) 11/16/20 19:38 Urine Urobilinogen Negative (Negative) 11/16/20 19:38 Ur Leukocyte Esterase Negative (Negative) 11/16/20 19:38 Anaplasma Smear See Comment 11/16/20 17:40 Lyme Disease IgG Ab Negative (Negative) 11/16/20 17:40 Lyme Disease IgM Ab Negative (Negative) 11/16/20 17:40 COVID-19 Eval Order Covid19 at [facility] 11/16/20 21:45 SARS-CoV-2 (PCR) NEGATIVE (Negative) 11/16/20 21:44 Blood Type O Positive 11/16/20 20:02 Antibody Screen NEGATIVE 11/16/20 20:02 Impressions Chest X-Ray 11/16/20 17:07 XR chest 1V portable HISTORY: SEPSIS COMPARISON: None. FINDINGS: No pneumothorax. No pleural effusions. A few left basilar linear densities favor subsegmental atelectasis or scarring. No focal lung consolidations to suggest pneumonia. No evidence for pulmonary edema. The heart is normal in size. There are low lung volumes. IMPRESSION: No acute process. ACT 112: Negative or not required by law. Electronically signed by: Mikal Zamudio M.D. 11/16/2020 7:39 PM Diagnostic Findings EKG as per my interpretation rate 115, sinus tachycardia, normal axis, T wave abnormalities inferior leads Code Status & VTE Plan VTE Prophylaxis Plan VTE Prophylaxis will be ordered: Yes
[2020-11-17] MEDS ORDERED: GLUCOSE 40% GEL 15 GM TUBE PO PRN (01:23)
[2020-11-17] MEDS ORDERED: PROMETHAZINE HCL 12.5 MG in SODIUM CHLORIDE 0.9% 50 ML IV PRN (01:23)
[2020-11-17] MEDS ORDERED: traMADol HCL 50 MG TABLET PO PRN (01:23)
[2020-11-17] MEDS ORDERED: GLUCAGON FOR INJ 1 MG VIAL SQ PRN (01:23)
[2020-11-17] MEDS ORDERED: GLUCOSE 10 TABS/TUBE PO PRN (01:23)
[2020-11-17] MEDS ORDERED: DEXTROSE 50% 50 ML SYRINGE IV PRN (01:23)
[2020-11-17] MEDS ORDERED: CARBOHYDRATES FOR HYPOGLYCEMIA PO PRN (01:23)
[2020-11-17] MEDS: INSULIN ASPART 100 UNITS/ML 3 ML PEN SC SCH ×3 (02:25→12:55)
[2020-11-17] MEDS ORDERED: INSULIN GLARGINE SOLOSTAR 100 UNITS/ML 3 ML PEN SC STA (02:40)
[2020-11-17] MEDS: HEPARIN SOD 5,000 UNIT/0.5 ML VIAL SQ SCH ×2 (05:49→13:18)
[2020-11-17] MEDS ORDERED: LEVOTHYROXINE SODIUM 50 MCG TABLET PO SCH (06:30)
[2020-11-17 08:49] LABS: BUN Creatinine Ratio 23.3 (10-20); Calcium 8.8 mg/dl (8.5-10.1); Est GFR (African American) 58.2 ml/min; Est GFR (Non-African American) 50.2 ml/min; Magnesium 1.9 mg/dl (1.8-2.4); Potassium 5.9 mmol/L (3.5-5.1)
[2020-11-17] MEDS ORDERED: INSULIN GLARGINE SOLOSTAR 100 UNITS/ML 3 ML PEN SC SCH (09:00)
[2020-11-17] MEDS ORDERED: gemfibroziL 600 MG TAB PO SCH (09:00)
[2020-11-17] MEDS ORDERED: PANTOprazole 40 MG TAB PO SCH (09:00)
[2020-11-17 11:06] LABS: Estimated Average Glucose 183 mg/dl
--- NOTE | 2020-11-17 12:33 | Dermatology Consultation ---
Date of Consultation November 17, 2020 Assessment & Plan (1) Dermatitis, unspecified: Resolved. No sign of active dermatitis on exam today. Suspect drug hypersensitivity reaction (?cephalexin > bactrim DS) based on reported history, but it is difficult to say with any certainty given the lack of any findings on exam today. Call with any recurrence, and I am happy to evaluate as an outpatient if needed. Present on Admission?: Yes History of Present Illness Reason for Consultation: Rash Attending Physician: Bernard Ayala DO History of Present Illness Patient is a 60-year-old male who admitted to [facility] on 11/16/2020 for rash. He has a recent history presenting to the ER on 11/07/2020 with acute onset of redness and swelling involving the right ankle/lower leg. At that time there was concern for possible cellulitis, so he was placed on courses of Bactrim DS twice daily x7 days and cephalexin 500 mg q6 hours x ?days (longer than Bactrim as per patient report) according to the records. He took his antibiotics as directed and reports that his course was unremarkable until he woke up 2 days ago with itching involving the arms and chest. Over the next 24 hours he gradually developed a red rash involving the arms, back, chest and proximal legs. He presented to the ER for further evaluation. He denies any systemic symptoms currently or at the time of rash onset, but he does recall some nausea/vomiting 2 days prior. He was treated with a course of prednisone at the time of admission, but his rash has resolved over the past 12 hours. He denies any itching currently and reports that he is feeling in normal state of health. He hopes to be discharged later today. He works construction. No other complaints today. Allergies Allergy/AdvReac Type Severity Reaction Status Date / Time cephalexin Allergy Severe Rash Verified 11/16/20 17:52 Home Medications Medication Instructions Recorded Confirmed Type atorvastatin 40 mg tablet 40 mg PO QPM 11/16/20 11/16/20 History gemfibrozil 600 mg tablet 600 mg PO BID 11/16/20 11/16/20 History levothyroxine 25 mcg tablet 25 mcg PO QAM 11/16/20 11/16/20 History lisinopril 20 mg tablet 20 mg PO DAILY 11/16/20 11/16/20 History metformin 1,000 mg tablet 1,000 mg PO BIDM 11/16/20 11/16/20 History omeprazole 40 mg capsule,delayed 40 mg PO DAILY 11/16/20 11/16/20 History release Patient History Medical History (Updated 11/17/20 @ 12:34 by Paul Maloney MD) Cellulitis Dermatitis, unspecified Diabetes No pertinent family history Surgical History No pertinent past surgical history Social History Smoking Status: Never smoker Hx Alcohol Use: No Hx Substance Use: No Preferred Language: Hebrew Communication Ability: Effective Copyright Expert Required: No Beliefs That Will Affect Care: None Current Living Situation: Spouse Other Information That Helps Us Care for You: No Feels Safe at Home: Yes Safety Concerns: Feels Safe At This Time Assistive Devices: None Review of Systems Constitutional: no fever and no chills Eyes: no eye pain Ear, Nose, Mouth, Throat: no mouth lesions Gastrointestinal: no abdominal pain, no nausea, no vomiting and no diarrhea/loose stools Musculoskeletal: no joint pain, no swelling and no stiffness Integumentary: as per Subjective / HPI Hematologic / Lymphatic: no easy bleeding and no easy bruising Physical Exam Physical Exam: General Appearance: Well developed, well-nourished and in no acute distress Psych: Alert, Oriented and Appropriate Skin Type: 2 Face: No signs of active dermatitis on exam today Eyelids/Ocular Mucosa: ocular mucosa WNL Lips/Teeth/Gums: oral mucosa WNL Neck: No signs of active dermatitis on exam today Right Lower Extremity: No signs of active dermatitis on exam today Left Lower Extremity: No signs of active dermatitis on exam today Back: No signs of active dermatitis on exam today Right Upper Extremity: No signs of active dermatitis on exam today Left Upper Extremity: No signs of active dermatitis on exam today Chest/Breast/Axillae: No signs of active dermatitis on exam today Abdomen: No signs of active dermatitis on exam today Results & Data ([facility]) Vital Signs (Past 12 Hours) Vital Signs Temp Pulse Pulse Resp BP Pulse Ox Pulse Ox 11/17/20 08:05 36.4 C L 73 18 128/70 95 11/17/20 07:43 73 11/17/20 04:33 36.4 C L 75 18 117/74 95 11/17/20 03:25 80 11/17/20 02:05 36.7 C 84 16 128/73 96 11/17/20 01:23 96 11/17/20 01:00 83 16 124/68 96 Laboratory Results 11/17/20 11/17/20 11/17/20 Range/Units 12:15 07:48 07:43 WBC (4.8-10.8) K/uL RBC (4.7-6.1) M/uL Hgb (14.0-18.0) g/dL Hct (42-52) % MCV (80-100) fL MCH (25-34) pg MCHC (32-36) g/dL RDW Std Deviation (36.4-46.3) fL RDW Coeff of Valentin (11.5-14.5) % Plt Count (130-400) K/uL MPV (7.4-10.4) fL Immature Gran % (Auto) % Neut % (Auto) % Lymph % (Auto) % Shannon % (Auto) % Eos % (Auto) % Baso % (Auto) % Reticulocyte % (Auto) (0.5-2.0) % Neut # (Auto) (1.4-6.5) K/uL Lymph # (Auto) (1.2-3.4) K/uL Shannon # (Auto) (0.11-0.59) K/uL Eos # (Auto) (0-0.5) K/uL Baso # (Auto) (0-0.2) K/uL Reticulocyte # (0.02-0.10) 10^6/uL Immature Gran # (Auto) (0.00-0.02) K/uL PT (9.0-12.0) Seconds INR (0.9-1.1) APTT (21.0-31.0) Seconds PTT Ratio Sodium (136-145) mmol/L Potassium (3.5-5.1) mmol/L Chloride (98-107) mmol/L Carbon Dioxide (21-32) mmol/L Anion Gap (3-11) BUN (7-18) mg/dl Creatinine (0.6-1.4) mg/dl Est Cr Clr Drug Dosing ml/min Est GFR ( Amer) ml/min Est GFR (Non-Af Amer) ml/min BUN/Creatinine Ratio (10-20) Glucose (70-99) mg/dl POC Glucose 267 H 249 H (70-99) mg/dl Estimat Average Glucose 183 mg/dl Hemoglobin A1c 8.0 H (4.5-5.6) % Lactate (0.4-2.0) mmol/L Calcium (8.5-10.1) mg/dl Magnesium (1.8-2.4) mg/dl Iron (35-175) mcg/dl TIBC (250-450) mcg/dl Transferrin (200-360) mg/dl Ferritin (8-388) ng/ml Total Bilirubin (0.2-1) mg/dl AST (15-37) U/L ALT (12-78) U/L Alkaline Phosphatase (45-117) U/L Total Creatine Kinase (39-308) U/L Troponin I (0-0.045) ng/ml Total Protein (6.4-8.2) gm/dl Albumin (3.4-5.0) gm/dl Globulin (2.5-4.0) gm/dl Albumin/Globulin Ratio (0.9-2) Vitamin B12 (193-986) pg/ml Folate (>5.38) ng/ml Procalcitonin (0-0.5) ng/ml TSH (0.300-4.500) uIu/ml Free T4 (0.8-1.6) ng/dl Urine Color Urine Appearance (Clear) Urine pH (4.5-7.5) Ur Specific Petty (1.000-1.030) Urine Protein (Negative) Urine Glucose (UA) (Negative) Urine Ketones (Negative) Urine Blood (Negative) Urine Nitrite (Negative) Urine Bilirubin (Negative) Urine Urobilinogen (Negative) Ur Leukocyte Esterase (Negative) Anaplasma Smear A. phagocytophilum DNA Lyme Disease IgG Ab (Negative) Lyme Disease IgM Ab (Negative) COVID-19 Eval Order SARS-CoV-2 (PCR) (Negative) Hepatitis C Ab Screen (Neg) Blood Type Antibody Screen 11/17/20 11/17/20 11/17/20 Range/Units 07:42 07:42 01:34 WBC (4.8-10.8) K/uL RBC (4.7-6.1) M/uL Hgb (14.0-18.0) g/dL Hct (42-52) % MCV (80-100) fL MCH (25-34) pg MCHC (32-36) g/dL RDW Std Deviation (36.4-46.3) fL RDW Coeff of Valentin (11.5-14.5) % Plt Count (130-400) K/uL MPV (7.4-10.4) fL Immature Gran % (Auto) % Neut % (Auto) % Lymph % (Auto) % Shannon % (Auto) % Eos % (Auto) % Baso % (Auto) % Reticulocyte % (Auto) (0.5-2.0) % Neut # (Auto) (1.4-6.5) K/uL Lymph # (Auto) (1.2-3.4) K/uL Shannon # (Auto) (0.11-0.59) K/uL Eos # (Auto) (0-0.5) K/uL Baso # (Auto) (0-0.2) K/uL Reticulocyte # (0.02-0.10) 10^6/uL Immature Gran # (Auto) (0.00-0.02) K/uL PT (9.0-12.0) Seconds INR (0.9-1.1) APTT (21.0-31.0) Seconds PTT Ratio Sodium 136 (136-145) mmol/L Potassium 5.9 H D (3.5-5.1) mmol/L Chloride 112 H (98-107) mmol/L Carbon Dioxide 15 L (21-32) mmol/L Anion Gap 8.0 (3-11) BUN 35 H (7-18) mg/dl Creatinine 1.50 H D (0.6-1.4) mg/dl Est Cr Clr Drug Dosing 64.0 ml/min Est GFR ( Amer) 58.2 ml/min Est GFR (Non-Af Amer) 50.2 ml/min BUN/Creatinine Ratio 23.3 H (10-20) Glucose 229 H (70-99) mg/dl POC Glucose 187 H (70-99) mg/dl Estimat Average Glucose mg/dl Hemoglobin A1c (4.5-5.6) % Lactate (0.4-2.0) mmol/L Calcium 8.8 (8.5-10.1) mg/dl Magnesium 1.9 (1.8-2.4) mg/dl Iron (35-175) mcg/dl TIBC (250-450) mcg/dl Transferrin (200-360) mg/dl Ferritin (8-388) ng/ml Total Bilirubin (0.2-1) mg/dl AST (15-37) U/L ALT (12-78) U/L Alkaline Phosphatase (45-117) U/L Total Creatine Kinase (39-308) U/L Troponin I (0-0.045) ng/ml Total Protein (6.4-8.2) gm/dl Albumin (3.4-5.0) gm/dl Globulin (2.5-4.0) gm/dl Albumin/Globulin Ratio (0.9-2) Vitamin B12 (193-986) pg/ml Folate (>5.38) ng/ml Procalcitonin (0-0.5) ng/ml TSH (0.300-4.500) uIu/ml Free T4 (0.8-1.6) ng/dl Urine Color Urine Appearance (Clear) Urine pH (4.5-7.5) Ur Specific Petty (1.000-1.030) Urine Protein (Negative) Urine Glucose (UA) (Negative) Urine Ketones (Negative) Urine Blood (Negative) Urine Nitrite (Negative) Urine Bilirubin (Negative) Urine Urobilinogen (Negative) Ur Leukocyte Esterase (Negative) Anaplasma Smear A. phagocytophilum DNA Lyme Disease IgG Ab (Negative) Lyme Disease IgM Ab (Negative) COVID-19 Eval Order SARS-CoV-2 (PCR) (Negative) Hepatitis C Ab Screen Neg (Neg) Blood Type Antibody Screen 11/16/20 11/16/20 11/16/20 Range/Units 21:45 21:44 21:04 WBC (4.8-10.8) K/uL RBC (4.7-6.1) M/uL Hgb (14.0-18.0) g/dL Hct (42-52) % MCV (80-100) fL MCH (25-34) pg MCHC (32-36) g/dL RDW Std Deviation (36.4-46.3) fL RDW Coeff of Valentin (11.5-14.5) % Plt Count (130-400) K/uL MPV (7.4-10.4) fL Immature Gran % (Auto) % Neut % (Auto) % Lymph % (Auto) % Shannon % (Auto) % Eos % (Auto) % Baso % (Auto) % Reticulocyte % (Auto) (0.5-2.0) % Neut # (Auto) (1.4-6.5) K/uL Lymph # (Auto) (1.2-3.4) K/uL Shannon # (Auto) (0.11-0.59) K/uL Eos # (Auto) (0-0.5) K/uL Baso # (Auto) (0-0.2) K/uL Reticulocyte # (0.02-0.10) 10^6/uL Immature Gran # (Auto) (0.00-0.02) K/uL PT (9.0-12.0) Seconds INR (0.9-1.1) APTT (21.0-31.0) Seconds PTT Ratio Sodium (136-145) mmol/L Potassium (3.5-5.1) mmol/L Chloride (98-107) mmol/L Carbon Dioxide (21-32) mmol/L Anion Gap (3-11) BUN (7-18) mg/dl Creatinine (0.6-1.4) mg/dl Est Cr Clr Drug Dosing ml/min Est GFR ( Amer) ml/min Est GFR (Non-Af Amer) ml/min BUN/Creatinine Ratio (10-20) Glucose (70-99) mg/dl POC Glucose 110 H (70-99) mg/dl Estimat Average Glucose mg/dl Hemoglobin A1c (4.5-5.6) % Lactate (0.4-2.0) mmol/L Calcium (8.5-10.1) mg/dl Magnesium (1.8-2.4) mg/dl Iron (35-175) mcg/dl TIBC (250-450) mcg/dl Transferrin (200-360) mg/dl Ferritin (8-388) ng/ml Total Bilirubin (0.2-1) mg/dl AST (15-37) U/L ALT (12-78) U/L Alkaline Phosphatase (45-117) U/L Total Creatine Kinase (39-308) U/L Troponin I (0-0.045) ng/ml Total Protein (6.4-8.2) gm/dl Albumin (3.4-5.0) gm/dl Globulin (2.5-4.0) gm/dl Albumin/Globulin Ratio (0.9-2) Vitamin B12 (193-986) pg/ml Folate (>5.38) ng/ml Procalcitonin (0-0.5) ng/ml TSH (0.300-4.500) uIu/ml Free T4 (0.8-1.6) ng/dl Urine Color Urine Appearance (Clear) Urine pH (4.5-7.5) Ur Specific Petty (1.000-1.030) Urine Protein (Negative) Urine Glucose (UA) (Negative) Urine Ketones (Negative) Urine Blood (Negative) Urine Nitrite (Negative) Urine Bilirubin (Negative) Urine Urobilinogen (Negative) Ur Leukocyte Esterase (Negative) Anaplasma Smear A. phagocytophilum DNA Lyme Disease IgG Ab (Negative) Lyme Disease IgM Ab (Negative) COVID-19 Eval Order Covid19 at [facility] SARS-CoV-2 (PCR) NEGATIVE (Negative) Hepatitis C Ab Screen (Neg) Blood Type Antibody Screen 11/16/20 11/16/20 11/16/20 Range/Units 20:02 20:02 20:02 WBC (4.8-10.8) K/uL RBC (4.7-6.1) M/uL Hgb (14.0-18.0) g/dL Hct (42-52) % MCV (80-100) fL MCH (25-34) pg MCHC (32-36) g/dL RDW Std Deviation (36.4-46.3) fL RDW Coeff of Valentin (11.5-14.5) % Plt Count (130-400) K/uL MPV (7.4-10.4) fL Immature Gran % (Auto) % Neut % (Auto) % Lymph % (Auto) % Shannon % (Auto) % Eos % (Auto) % Baso % (Auto) % Reticulocyte % (Auto) (0.5-2.0) % Neut # (Auto) (1.4-6.5) K/uL Lymph # (Auto) (1.2-3.4) K/uL Shannon # (Auto) (0.11-0.59) K/uL Eos # (Auto) (0-0.5) K/uL Baso # (Auto) (0-0.2) K/uL Reticulocyte # (0.02-0.10) 10^6/uL Immature Gran # (Auto) (0.00-0.02) K/uL PT (9.0-12.0) Seconds INR (0.9-1.1) APTT (21.0-31.0) Seconds PTT Ratio Sodium 135 L (136-145) mmol/L Potassium 4.8 (3.5-5.1) mmol/L Chloride 110 H (98-107) mmol/L Carbon Dioxide 14 L (21-32) mmol/L Anion Gap 11.0 (3-11) BUN 42 H (7-18) mg/dl Creatinine 1.90 H (0.6-1.4) mg/dl Est Cr Clr Drug Dosing 50.6 ml/min Est GFR ( Amer) 43.7 ml/min Est GFR (Non-Af Amer) 37.7 ml/min BUN/Creatinine Ratio 22.2 H (10-20) Glucose 111 H (70-99) mg/dl POC Glucose (70-99) mg/dl Estimat Average Glucose mg/dl Hemoglobin A1c (4.5-5.6) % Lactate (0.4-2.0) mmol/L Calcium 9.1 (8.5-10.1) mg/dl Magnesium (1.8-2.4) mg/dl Iron 56 (35-175) mcg/dl TIBC 268 (250-450) mcg/dl Transferrin 245 (200-360) mg/dl Ferritin 745.6 H (8-388) ng/ml Total Bilirubin (0.2-1) mg/dl AST (15-37) U/L ALT (12-78) U/L Alkaline Phosphatase (45-117) U/L Total Creatine Kinase 328 H (39-308) U/L Troponin I (0-0.045) ng/ml Total Protein (6.4-8.2) gm/dl Albumin (3.4-5.0) gm/dl Globulin (2.5-4.0) gm/dl Albumin/Globulin Ratio (0.9-2) Vitamin B12 248 (193-986) pg/ml Folate 9.50 (>5.38) ng/ml Procalcitonin (0-0.5) ng/ml TSH 16.800 H (0.300-4.500) uIu/ml Free T4 0.65 L (0.8-1.6) ng/dl Urine Color Urine Appearance (Clear) Urine pH (4.5-7.5) Ur Specific Petty (1.000-1.030) Urine Protein (Negative) Urine Glucose (UA) (Negative) Urine Ketones (Negative) Urine Blood (Negative) Urine Nitrite (Negative) Urine Bilirubin (Negative) Urine Urobilinogen (Negative) Ur Leukocyte Esterase (Negative) Anaplasma Smear A. phagocytophilum DNA Lyme Disease IgG Ab (Negative) Lyme Disease IgM Ab (Negative) COVID-19 Eval Order SARS-CoV-2 (PCR) (Negative) Hepatitis C Ab Screen (Neg) Blood Type O Positive Antibody Screen NEGATIVE 11/16/20 11/16/20 11/16/20 Range/Units 19:38 19:20 19:20 WBC (4.8-10.8) K/uL RBC (4.7-6.1) M/uL Hgb (14.0-18.0) g/dL Hct (42-52) % MCV (80-100) fL MCH (25-34) pg MCHC (32-36) g/dL RDW Std Deviation (36.4-46.3) fL RDW Coeff of Valentin (11.5-14.5) % Plt Count (130-400) K/uL MPV (7.4-10.4) fL Immature Gran % (Auto) % Neut % (Auto) % Lymph % (Auto) % Shannon % (Auto) % Eos % (Auto) % Baso % (Auto) % Reticulocyte % (Auto) (0.5-2.0) % Neut # (Auto) (1.4-6.5) K/uL Lymph # (Auto) (1.2-3.4) K/uL Shannon # (Auto) (0.11-0.59) K/uL Eos # (Auto) (0-0.5) K/uL Baso # (Auto) (0-0.2) K/uL Reticulocyte # (0.02-0.10) 10^6/uL Immature Gran # (Auto) (0.00-0.02) K/uL PT (9.0-12.0) Seconds INR (0.9-1.1) APTT (21.0-31.0) Seconds PTT Ratio Sodium (136-145) mmol/L Potassium (3.5-5.1) mmol/L Chloride (98-107) mmol/L Carbon Dioxide (21-32) mmol/L Anion Gap (3-11) BUN (7-18) mg/dl Creatinine (0.6-1.4) mg/dl Est Cr Clr Drug Dosing ml/min Est GFR ( Amer) ml/min Est GFR (Non-Af Amer) ml/min BUN/Creatinine Ratio (10-20) Glucose (70-99) mg/dl POC Glucose (70-99) mg/dl Estimat Average Glucose mg/dl Hemoglobin A1c (4.5-5.6) % Lactate (0.4-2.0) mmol/L Calcium (8.5-10.1) mg/dl Magnesium (1.8-2.4) mg/dl Iron (35-175) mcg/dl TIBC (250-450) mcg/dl Transferrin (200-360) mg/dl Ferritin (8-388) ng/ml Total Bilirubin (0.2-1) mg/dl AST (15-37) U/L ALT (12-78) U/L Alkaline Phosphatase (45-117) U/L Total Creatine Kinase (39-308) U/L Troponin I (0-0.045) ng/ml Total Protein (6.4-8.2) gm/dl Albumin (3.4-5.0) gm/dl Globulin (2.5-4.0) gm/dl Albumin/Globulin Ratio (0.9-2) Vitamin B12 (193-986) pg/ml Folate (>5.38) ng/ml Procalcitonin (0-0.5) ng/ml TSH (0.300-4.500) uIu/ml Free T4 (0.8-1.6) ng/dl Urine Color Yellow Urine Appearance Clear (Clear) Urine pH 5.0 (4.5-7.5) Ur Specific Petty 1.012 (1.000-1.030) Urine Protein Negative (Negative) Urine Glucose (UA) Negative (Negative) Urine Ketones Negative (Negative) Urine Blood Negative (Negative) Urine Nitrite Negative (Negative) Urine Bilirubin Negative (Negative) Urine Urobilinogen Negative (Negative) Ur Leukocyte Esterase Negative (Negative) Anaplasma Smear A. phagocytophilum DNA Lyme Disease IgG Ab (Negative) Lyme Disease IgM Ab (Negative) COVID-19 Eval Order Covid19 at [facility] SARS-CoV-2 (PCR) POSITIVE A* (Negative) Hepatitis C Ab Screen (Neg) Blood Type Antibody Screen 11/16/20 11/16/20 11/16/20 Range/Units 17:40 17:40 17:40 WBC (4.8-10.8) K/uL RBC (4.7-6.1) M/uL Hgb (14.0-18.0) g/dL Hct (42-52) % MCV (80-100) fL MCH (25-34) pg MCHC (32-36) g/dL RDW Std Deviation (36.4-46.3) fL RDW Coeff of Valentin (11.5-14.5) % Plt Count (130-400) K/uL MPV (7.4-10.4) fL Immature Gran % (Auto) % Neut % (Auto) % Lymph % (Auto) % Shannon % (Auto) % Eos % (Auto) % Baso % (Auto) % Reticulocyte % (Auto) (0.5-2.0) % Neut # (Auto) (1.4-6.5) K/uL Lymph # (Auto) (1.2-3.4) K/uL Shannon # (Auto) (0.11-0.59) K/uL Eos # (Auto) (0-0.5) K/uL Baso # (Auto) (0-0.2) K/uL Reticulocyte # (0.02-0.10) 10^6/uL Immature Gran # (Auto) (0.00-0.02) K/uL PT (9.0-12.0) Seconds INR (0.9-1.1) APTT (21.0-31.0) Seconds PTT Ratio Sodium (136-145) mmol/L Potassium (3.5-5.1) mmol/L Chloride (98-107) mmol/L Carbon Dioxide (21-32) mmol/L Anion Gap (3-11) BUN (7-18) mg/dl Creatinine (0.6-1.4) mg/dl Est Cr Clr Drug Dosing ml/min Est GFR ( Amer) ml/min Est GFR (Non-Af Amer) ml/min BUN/Creatinine Ratio (10-20) Glucose (70-99) mg/dl POC Glucose (70-99) mg/dl Estimat Average Glucose mg/dl Hemoglobin A1c (4.5-5.6) % Lactate 0.9 (0.4-2.0) mmol/L Calcium (8.5-10.1) mg/dl Magnesium (1.8-2.4) mg/dl Iron (35-175) mcg/dl TIBC (250-450) mcg/dl Transferrin (200-360) mg/dl Ferritin (8-388) ng/ml Total Bilirubin (0.2-1) mg/dl AST (15-37) U/L ALT (12-78) U/L Alkaline Phosphatase (45-117) U/L Total Creatine Kinase (39-308) U/L Troponin I (0-0.045) ng/ml Total Protein (6.4-8.2) gm/dl Albumin (3.4-5.0) gm/dl Globulin (2.5-4.0) gm/dl Albumin/Globulin Ratio (0.9-2) Vitamin B12 (193-986) pg/ml Folate (>5.38) ng/ml Procalcitonin 0.49 (0-0.5) ng/ml TSH (0.300-4.500) uIu/ml Free T4 (0.8-1.6) ng/dl Urine Color Urine Appearance (Clear) Urine pH (4.5-7.5) Ur Specific Petty (1.000-1.030) Urine Protein (Negative) Urine Glucose (UA) (Negative) Urine Ketones (Negative) Urine Blood (Negative) Urine Nitrite (Negative) Urine Bilirubin (Negative) Urine Urobilinogen (Negative) Ur Leukocyte Esterase (Negative) Anaplasma Smear A. phagocytophilum DNA Pending Lyme Disease IgG Ab Negative (Negative) Lyme Disease IgM Ab Negative (Negative) COVID-19 Eval Order SARS-CoV-2 (PCR) (Negative) Hepatitis C Ab Screen (Neg) Blood Type Antibody Screen 11/16/20 11/16/20 11/16/20 Range/Units 17:40 17:40 17:40 WBC 8.52 (4.8-10.8) K/uL RBC 4.10 L (4.7-6.1) M/uL Hgb 12.7 L (14.0-18.0) g/dL Hct 37.1 L (42-52) % MCV 90.5 (80-100) fL MCH 31.0 (25-34) pg MCHC 34.2 (32-36) g/dL RDW Std Deviation 44.4 (36.4-46.3) fL RDW Coeff of Valentin 13.4 (11.5-14.5) % Plt Count 297 (130-400) K/uL MPV 10.0 (7.4-10.4) fL Immature Gran % (Auto) 0.2 % Neut % (Auto) 75.5 % Lymph % (Auto) 13.6 % Shannon % (Auto) 4.7 % Eos % (Auto) 5.9 % Baso % (Auto) 0.1 % Reticulocyte % (Auto) < 0.5 L (0.5-2.0) % Neut # (Auto) 6.43 (1.4-6.5) K/uL Lymph # (Auto) 1.16 L (1.2-3.4) K/uL Shannon # (Auto) 0.40 (0.11-0.59) K/uL Eos # (Auto) 0.50 (0-0.5) K/uL Baso # (Auto) 0.01 (0-0.2) K/uL Reticulocyte # 0.02 (0.02-0.10) 10^6/uL Immature Gran # (Auto) 0.02 (0.00-0.02) K/uL PT 10.4 (9.0-12.0) Seconds INR 1.0 (0.9-1.1) APTT 32.7 H (21.0-31.0) Seconds PTT Ratio 1.2 Sodium 131 L (136-145) mmol/L Potassium 5.5 H (3.5-5.1) mmol/L Chloride 108 H (98-107) mmol/L Carbon Dioxide 16 L (21-32) mmol/L Anion Gap 7.0 (3-11) BUN 47 H (7-18) mg/dl Creatinine 2.07 H (0.6-1.4) mg/dl Est Cr Clr Drug Dosing 46.4 ml/min Est GFR ( Amer) 39.4 ml/min Est GFR (Non-Af Amer) 34.0 ml/min BUN/Creatinine Ratio 22.6 H (10-20) Glucose 154 H (70-99) mg/dl POC Glucose (70-99) mg/dl Estimat Average Glucose mg/dl Hemoglobin A1c (4.5-5.6) % Lactate (0.4-2.0) mmol/L Calcium 9.1 (8.5-10.1) mg/dl Magnesium 1.7 L (1.8-2.4) mg/dl Iron (35-175) mcg/dl TIBC (250-450) mcg/dl Transferrin (200-360) mg/dl Ferritin (8-388) ng/ml Total Bilirubin 0.3 (0.2-1) mg/dl AST 28 (15-37) U/L ALT 35 (12-78) U/L Alkaline Phosphatase 91 (45-117) U/L Total Creatine Kinase (39-308) U/L Troponin I < 0.015 (0-0.045) ng/ml Total Protein 7.9 (6.4-8.2) gm/dl Albumin 3.9 (3.4-5.0) gm/dl Globulin 4.0 (2.5-4.0) gm/dl Albumin/Globulin Ratio 1.0 (0.9-2) Vitamin B12 (193-986) pg/ml Folate (>5.38) ng/ml Procalcitonin (0-0.5) ng/ml TSH (0.300-4.500) uIu/ml Free T4 (0.8-1.6) ng/dl Urine Color Urine Appearance (Clear) Urine pH (4.5-7.5) Ur Specific Petty (1.000-1.030) Urine Protein (Negative) Urine Glucose (UA) (Negative) Urine Ketones (Negative) Urine Blood (Negative) Urine Nitrite (Negative) Urine Bilirubin (Negative) Urine Urobilinogen (Negative) Ur Leukocyte Esterase (Negative) Anaplasma Smear See Comment A. phagocytophilum DNA Lyme Disease IgG Ab (Negative) Lyme Disease IgM Ab (Negative) COVID-19 Eval Order SARS-CoV-2 (PCR) (Negative) Hepatitis C Ab Screen (Neg) Blood Type Antibody Screen PG Care Time/CCT Total # of Minutes Spent Total Time Spent with Patient: Total time spent is greater than 50% in coordination of care (as documented) at patient's floor/unit and/or counseling patient: Coding Level of Care Code 77524 Inpt Consult Level 2 Diagnoses Dermatitis, unspecified L30.9
--- NOTE | 2020-11-17 13:41 | Discharge Summary ---
Date of Service November 17, 2020 Admission HPI Per Admitting Provider History obtained from patient, family, and records. Medical history significant for hyperlipidemia, DM2 on oral medications, CRI ( baseline creatinine 1.3-1.4), chronic anemia (baseline hemoglobin of 13). Last confinement 2012 for dental abscess and odontogenic left facial cellulitis. Patient contracted COVID-19 illness last July 2020. Cough, nasal congestion symptoms self-limiting. No hospitalization required. 12 days ago, patient noted right foot pain swelling which later involved right lower leg. No fever, no chills no recollection of trauma. Patient seen at the ER. Patient discharged on Keflex and Bactrim course. Improved right leg swelling following compliance with antibiotic regimen. Patient completed Bactrim course. Few more days of Keflex. Generalized pruritus symptoms noted when patient went to bed last night. This morning, patient woke up with a generalized rash. Low-grade fever at home. Patient denies chest pain, S OB, cough symptoms. Patient brought to the ER by for evaluation. First COVID-19 test was positive. ED RN requested repeat swab to confirm result as patient's first specimen was submitted to the lab at the same time as another ED patient with Covid 19 p neumonia findings on CXR. Patient's second COVID-19 swab found to be negative. ED patient with COVID-19 pneumonia findings with 2 negative COVID-19 swabs results at the ER. Medical History as above Surgical History : None Family History : Lung cancer, penile cancer, hypertension Personal/Social history : Non-smoker, occasional EtOH intake, construction work Admission Exam Per Admitting Provider GENERAL: Uncomfortable, obese, no respiratory distress SKIN: Generalized maculopapular rash, warm HEENT: Flushed face, pink palpebral conjunctivae, no ptosis, dry buccal mucosa NECK : Supple, short neck, no tenderness CHEST : CTA, no tenderness HEART : RRR, no obvious murmurs ABDOMEN: Some distention, nontender RECTAL : Intact sphincter, brown stool (FOBT negative) EXTREMITIES : Minimal LE swelling/tenderness, no other conspicuous deformities noted NEUROLOGIC : Coherent, no facial asymmetry, no other gross focality Principal Diagnosis Drug rash Discharge Exam ROS-No Headache, No Visual Changes, No Nausea, No Vomiting, No Fever, No Chills, No Neck Pain or Stiffness, No Chest Pain, No Palpitations, No SOB, No DAY, No Cough, No Sputum, No Wheezing, No Abdominal Pain, No Diarrhea, No Hematemesis, No Hemoptysis, No Unexpected Weight Loss, No Flank pain, No Melena, No Hematochezia, No Frequency, No Urgency, No Burning, No Hematuria, No Rashes, No Diaphoresis. Appetite is Normal Physical Exam Gen-AAO x 3, NAD, Afebrile Head-NCAT, EOMI, PERRLA, Anicteric Sclera, No Posterior Pharyngeal Erythema Neck-Supple, No JVD, No Thyromegaly, No Masses, No LAD, No Bruits Lungs-Clear to Auscultation Bilaterally, No Rales, No Rhonchi, No Wheezing, No Crepitus Chest-No S4, +S1, +S2, No S3, No Murmurs, No Rubs, No Gallops, No Ectopy Abdomen-Soft, Bowel Sounds Present, Non Tender, Non Distended, No Hepatomegaly, No Splenomegaly, No Palpable Masses, No Rebound, No Rigidity, No Guarding Musculoskeletal-Full Range of Motion Bilaterally, No CVAT, mild rash, much better Extremities-No Cyanosis, No Clubbing, No Edema Nuero-Cranial Nerves II-XII grossly intact, Motor WNL, DTRs WNL, Strength WNL, Non Focal Psych-Normal Mood Discharge Data Allergies Allergy/AdvReac Type Severity Reaction Status Date / Time cephalexin Allergy Severe Rash Verified 11/16/20 17:52 Consultations 11/16/20 19:06 ED Decision to Admit Stat 11/17/20 05:34 Consult Dermatology Routine Current Diagnoses Dermatitis, unspecified (11/16/20) Acute kidney failure, unspecified (11/16/20) Allergies cephalexin Allergy (Severe, Verified 11/16/20 17:52) Rash Height/Weight/Isolation Height 5 ft 10 in Weight 103.8 kg Isolation Type COVID Precautions Chemistry 11/16/20 11/16/20 11/17/20 17:40 20:02 07:42 Sodium 131 L 135 L 136 Potassium 5.5 H 4.8 5.9 H D Chloride 108 H 110 H 112 H Carbon Dioxide 16 L 14 L 15 L Anion Gap 7.0 11.0 8.0 BUN 47 H 42 H 35 H Creatinine 2.07 H 1.90 H 1.50 H D Glucose 154 H 111 H 229 H Urinalysis 11/16/20 19:38 Urine Color Yellow Urine Appearance Clear Urine pH 5.0 Ur Specific Junior 1.012 Urine Protein Negative Urine Glucose (UA) Negative Urine Ketones Negative Urine Blood Negative Urine Nitrite Negative Urine Bilirubin Negative Microbiology 11/16/20 17:40 Blood Aerobic Blood Culture - Pending 11/16/20 17:40 Blood Anaerobic Blood Culture - Pending 11/16/20 17:40 Blood Aerobic Blood Culture - Pending 11/16/20 17:40 Blood Anaerobic Blood Culture - Pending Hospital Course (1) ARF (acute renal failure): ARF on CKD Likely ATN from recent antibiotic medications Hyperkalemia secondary to above Home AMOL-I contributory Drug rash Possibly from Keflex RLE cellulitis improved post antibiotic Rx Discordant COVID-19 tests hx COVID-19 illness (June 2020) Patient without respiratory symptoms. 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 COVID-19 isolation precautions for now, Neg for COVID, may return to work Basal insulin, ISS BG goal 1 10-1 40, carb count coverage, update hemoglobin A1c Anemia work-up, transfuse PRBC if hemoglobin less than 7 and or for symptomatic anemia DC home on PO steroids for 5 days Total Time Total Time Spent Total Time Spent (In Minutes): 45 mins Total Time Includes: Examination of the Patient, Discharge Planning, Medication Reconciliation and Communication With Other Providers Discharge Plan Discharge Items Patient Disposition: Home - Self-Care Reason For Visit: ARF, HYPERKALEMIA Discharge Diagnosis: Drug Rash Activity: Resume your previous activity Bathing: No limitations Sexual Activity: When tolerated Exercise/Sports: Gradually increase as tolerated Driving/Machine Use: No limitations Weightbearing: Full weightbearing Non-emergency contact: Primary Care Provider Call non-emergency contact if: you have any medication questions Follow-up/Referrals: Carroll Galarza MD [Primary Care Provider] - (Date & Time 11/24/2020 9:40 AM Provider Carroll Galarza MD Department [facility] ) Diet: Regular Addtl Attending Provider Instructions: Hold Lisinopril and Metformin until after next Dr visit Pending Studies at Discharge: No Stand-Alone Forms: My [facility] [email or web address], Smoking Cessation Medications and DC Order Prescriptions: New prednisone 10 mg tablet 10 mg PO DAILY Qty: 21 RF: 0 Continued atorvastatin 40 mg tablet 40 mg PO QPM RF: 0 levothyroxine 25 mcg tablet 25 mcg PO QAM RF: 0 gemfibrozil 600 mg tablet 600 mg PO BID RF: 0 omeprazole 40 mg Capsule,Delayed Release(Dr/Ec) 40 mg PO DAILY RF: 0 Discontinued lisinopril 20 mg tablet 20 mg PO DAILY RF: 0 metformin 1,000 mg tablet 1,000 mg PO BIDM RF: 0 Discharge Orders: Discharge Order (Routine); Ordered 11/17/20 Ordered By: Bernard Ayala Admission Data Admit Date/Time: 11/16/20 23:12 Attending Provider: Bernard Ayala Admit Provider: Otis Ponce Primary Care Provider: Carroll Galarza Other Providers: Otis Ponce ; Paul Maloney
[2020-11-17 15:11] LABS: BUN Creatinine Ratio 18.5 (10-20); Calcium 8.6 mg/dl (8.5-10.1); Creatinine Clr Calc Pharmacy 55.2 ml/min; Est GFR (African American) 48.7 ml/min
--- NOTE | 2020-11-17 16:13 | Electrocardiogram Report ---
Test Reason : Blood Pressure : / mmHG Vent. Rate : 115 BPM Atrial Rate : 115 BPM P-R Int : 148 ms QRS Dur : 090 ms QT Int : 298 ms P-R-T Axes : 044 035 007 degrees QTc Int : 412 ms Sinus tachycardia Otherwise normal ECG No previous ECGs available Confirmed by Francis Cooney ([id number]) on 11/17/2020 4:13:25 PM Referred By: REFERRED SELF Confirmed By:Francis Cooney
[2020-11-17] MEDS ORDERED: ATORVASTATIN 40 MG TAB PO SCH (21:00)
[2020-11-18] MEDS ORDERED: INSULIN GLARGINE SOLOSTAR 100 UNITS/ML 3 ML PEN SC SCH (09:00)
== END 2020-11-17 17:40 | disposition home or self-care (01) | DRG 684 ==
LOC: ED 16:58 → 2N 23:12